=== PATIENT | female | born 1990 | race Two or more races ===

== ENCOUNTER 2024-06-17 12:26 | Day surgery (SDC) | payer OTHER, SELFPAY ==
--- NOTE | 2024-06-17 12:38 | US_ITS ---
The [address] [address] Patient Name: DARNELL ALEMAN MRN: [id number] date: 1990 Sex: F Assigned Patient Location: [place] Current Patient Location: [place] Accession/Order Number: [id number] Exam Date: 06/17/2024 12:40 Report Date: 06/17/2024 14:07 At the request of: DANA NIEVES Procedure: US biopsy thyroid EXAMINATION: US biopsy thyroid HISTORY: Thyroid Nodule COMPARISON: No relevant comparison available. TECHNIQUE: After obtaining informed consent, an ultrasound-guided biopsy was performed in the usual sterile manner. FINDINGS: IMAGING: Ultrasound BIOPSY NEEDLE: 25-gauge 2 inch SPECIMEN TYPE, #, LOCATION: 4 fine-needle aspirates, 1.5 cm left hypoechoic nodule MEDICATION: 4 cc 1% buffered lidocaine COMPLICATIONS: None. LABORATORY: Pathology and molecular studies OTHER: Negative. US/US biopsy thyroid IMPRESSION: Uneventful ultrasound guided biopsy. The patient was instructed to obtain follow up care and biopsy results from the referring physician. Electronically authenticated by: TYRESE JEAN Date: 06/17/2024 14:07
[2024-06-17] MEDS: LIDOCAINE HCL 10 ML, SODIUM BICARBONATE 1 MEQ INJ (13:20)
--- NOTE | 2024-06-17 13:58 | SUR.PREOP ---
06/13/24 Pt instructed on procedure, date, time, and prep.
[2024-06-17 14:04] VITALS: BP 133/86; PULSE 91; O2SAT 99
== END 2024-06-17 13:40 | disposition home or self-care (01) ==
LOC: US 12:32
PROVIDERS: Radiology Diagnostic Radiology; Visit Provider Otolaryngology
DX: E04.1 Nontoxic single thyroid nodule (principal)
CPT/HCPCS: 10005; 88173